=== PATIENT | male | born 1985 | race African-American/Black ===

== ENCOUNTER 2017-05-20 10:35 | Emergency (ER) | payer OTHER ==
[2017-05-20 10:43] VITALS: BP 178/120; PULSE 65; RESP 20; TEMP 98.2
[2017-05-20] MEDS ORDERED: IBUPROFEN 600 MG STARTER PACK 4 TAB BTL PO STA (11:09)
[2017-05-20] MEDS ORDERED: PENICILLIN VK 500MG STARTER 4 TAB BTL PO STA (11:09)
[2017-05-20] MEDS ORDERED: traMADol 50 MG STARTER PACK 3 TAB BTL PO STA (11:10)
--- NOTE | 2017-05-20 11:17 | ED ---
ENT HPI - General Chief complaint: Dental/Oral Stated complaint: Dental Pain Time Seen by Provider: 05/20/17 10:54 Source: patient, RN notes reviewed Mode of arrival: ambulatory Limitations: no limitations - History of Present Illness Initial comments: 32-year-old male presents to the emergency department the chief complaint of left-sided dental pain. Patient states that about 2 weeks pain is just getting worse. Patient states that radiates up his jaw and down his chart here. Patient states that he is no pain to palpation in the neck denies any swelling of the face or any fevers. He denies any difficulty opening closing the mouth. Patient states that he tried to get into a dentist but he is unable to get an appointment at this time. Patient states that he does have a history of poor dentition in the past. Patient states that he was concerned due to his symptoms so he thought that he should be evaluated. Patient denies any recent fever, chills, shortness of breath, chest pain, back pain, abdominal pain, nausea vomiting, numbness or tingling, dysuria or hematuria, constipation or diarrhea, headaches or visual changes, or any other current symptoms. - Related Data Previous Rx's Medication Instructions Recorded Penicillin V Potassium [Pen Vee K] 500 mg PO QID #40 tab 09/13/14 Ibuprofen [Motrin] 600 mg PO Q6HR PRN #20 tab 05/20/17 Penicillin V Potassium [Pen Vee K] 500 mg PO TID #40 tab 05/20/17 traMADol HCl [Ultram] 50 mg PO Q4H PRN #20 tab 05/20/17 Allergies Allergy/AdvReac Type Severity Reaction Status Date / Time No Known Allergies Allergy Verified 05/20/17 10:43 Review of Systems ROS Statement: Those systems with pertinent positive or pertinent negative responses have been documented in the HPI. ROS Other: All systems not noted in ROS Statement are negative. Past Medical History Past Medical History: No Reported History History of Any Multi-Drug Resistant Organisms: None Reported Past Surgical History: No Surgical Hx Reported Past Psychological History: No Psychological Hx Reported Smoking Status: Current every day smoker Past Alcohol Use History: Occasional Past Drug Use History: None Reported General Exam Limitations: no limitations General appearance: alert, in no apparent distress Head exam: Present: atraumatic, normocephalic, normal inspection Eye exam: Present: normal appearance, PERRL, EOMI. Absent: scleral icterus, conjunctival injection, periorbital swelling ENT exam: Present: normal exam, mucous membranes moist Expanded Ear exam: Present: normal external inspection Mouth exam: Present: normal external inspection Teeth exam: Present: dental caries, fractured tooth # (18), other (No abscess). Absent: gingival enlargement Throat exam: normal inspection Neck exam: Present: normal inspection. Absent: tenderness, meningismus, lymphadenopathy Respiratory exam: Present: normal lung sounds bilaterally. Absent: respiratory distress, wheezes, rales, rhonchi, stridor Cardiovascular Exam: Present: regular rate, normal rhythm, normal heart sounds. Absent: systolic murmur, diastolic murmur, rubs, gallop, clicks Neurological exam: Present: alert, oriented X3 Psychiatric exam: Present: normal affect, normal mood Skin exam: Present: warm, dry, intact, normal color. Absent: rash Course Vital Signs 05/20/17 10:40 Temperature 98.2 F Pulse Rate 65 Respiratory 20 Rate Blood Pressure 178/120 O2 Sat by Pulse 99 Oximetry Medical Decision Making - Medical Decision Making 32-year-old male presents emergency department with a chief complaint of left- sided dental pain. we will Start the patient on pain medication as well as antibiotics. We discussed return parameters and follow-up and all questions. He stated he understood. This time patient will be discharged. Disposition Clinical Impression: Dental caries Disposition: HOME SELF-CARE Condition: Stable Instructions: Dental Caries (ED) Additional Instructions: Please use medication as discussed. Please follow up with family doctor if symptoms have not improved over the next two days. Please return to the emergency room if your symptoms increase or worsen or for any other concerns. [facility] [place] [address] [phone] (existing clients only) For new clients: [phone] 1st consult: $50 (includes Xrays) Usually 30% less then private dentist for visits after. [employer] Have to pay $50 for Xrays anmd rest is covered. [phone] Prescriptions: Ibuprofen [Motrin] 600 mg PO Q6HR PRN #20 tab PRN Reason: Pain Penicillin V Potassium [Pen Vee K] 500 mg PO TID #40 tab traMADol HCl [Ultram] 50 mg PO Q4H PRN #20 tab PRN Reason: Pain Referrals: Karin Lopez MD [STAFF PHYSICIAN] - 1-2 days Time of Disposition: 11:15
== END 2017-05-20 11:25 | disposition home or self-care (01) ==
LOC: EC 10:35
DX: K02.9 Dental caries, unspecified (principal); K03.81 Cracked tooth; F17.200 Nicotine dependence, unspecified, uncomplicated
CPT/HCPCS: 99282

== ENCOUNTER 2017-11-06 20:34 | Emergency (ER) | payer OTHER ==
[2017-11-06 20:53] VITALS: BP 134/77; PULSE 79; RESP 18; TEMP 97.1
--- NOTE | 2017-11-06 21:25 | ED ---
General Adult HPI - General Chief complaint: Extremity Injury, Upper Stated complaint: hand injury Time Seen by Provider: 11/06/17 20:55 Source: patient, RN notes reviewed Mode of arrival: ambulatory Limitations: no limitations - History of Present Illness Initial comments: 32-year-old male presents to the emergency department with a chief complaint of right hand pain. Patient states that he became angry today and he punched the wall. Patient states that he now noticed a bulge in his right hand he has pain with any movement of the fourth or fifth digit. He denies any wrist pain or elbow pain. He states he is not currently having any other symptoms at this time. They were concerned due to the patient's continued pain and discomfort so they thought that they should be evaluated. Patient denies any recent fever, chills, shortness of breath, chest pain, back pain, abdominal pain, nausea vomiting, numbness or tingling, dysuria or hematuria, constipation or diarrhea, headaches or visual changes, or any other current symptoms. - Related Data Previous Rx's Medication Instructions Recorded Penicillin V Potassium [Pen Vee K] 500 mg PO QID #40 tab 09/13/14 Ibuprofen [Motrin] 600 mg PO Q6HR PRN #20 tab 05/20/17 Penicillin V Potassium [Pen Vee K] 500 mg PO TID #40 tab 05/20/17 traMADol HCl [Ultram] 50 mg PO Q4H PRN #20 tab 05/20/17 Hydrocodone/Acetaminophen [Pitman 1 each PO Q6HR PRN #10 tab 11/06/17 5-325] Allergies Allergy/AdvReac Type Severity Reaction Status Date / Time No Known Allergies Allergy Verified 11/06/17 20:53 Review of Systems ROS Statement: Those systems with pertinent positive or pertinent negative responses have been documented in the HPI. ROS Other: All systems not noted in ROS Statement are negative. Past Medical History Past Medical History: No Reported History History of Any Multi-Drug Resistant Organisms: None Reported Past Surgical History: No Surgical Hx Reported Past Psychological History: Anxiety Smoking Status: Current every day smoker Past Alcohol Use History: Occasional Past Drug Use History: None Reported General Exam - General Exam Comments Initial Comments: General: The patient is awake and alert, in no distress, and does not appear acutely ill. Neck: The neck is supple, there is no tenderness. Cardiovascular: There is a regular rate and rhythm. No murmur, rub or gallop is appreciated. Respiratory: Lungs are clear to auscultation, respirations are non-labored, breath sounds are equal. No wheezes, stridor, rales, or rhonchi. Musculoskeletal: Sensation intact with 2+ pulses right upper Extremity. Full range of motion of the right elbow. Patient's panel bulge over the fifth metatarsal. There is a small abrasion to the right third digit. Limited range of motion of the right wrist and hand due to pain. Neurological: CN II-XII intact, There are no obvious motor or sensory deficits. Coordination appears grossly intact. Speech is normal. Skin: Skin is warm and dry and no rashes or lesions are noted. Psychiatric: Normal mood and affect. Limitations: no limitations Course Vital Signs 11/06/17 20:50 Temperature 97.1 F L Pulse Rate 79 Respiratory 18 Rate Blood Pressure 134/77 O2 Sat by Pulse 100 Oximetry Procedures - Orthopedic Splinting/Casting Injury #1 Side: right Upper Extremity Injury Location: hand Upper Extremity Immobilizer: ulnar gutter (short arm) Medical Decision Making - Medical Decision Making 32-year-old male presents for right fifth metatarsal dislocation. At this time we did discuss follow-up with him he is given orthopedic referral. We did discuss return parameters all patient's questions. Patient stated that he understood and he is agreement this plan. All questions have been answered. - Radiology Data Radiology results: report reviewed, image reviewed Disposition Clinical Impression: Closed dislocation of fifth metacarpal bone of right hand Disposition: HOME SELF-CARE Condition: Stable Instructions: Hand Fracture (ED) Additional Instructions: Please use medication as discussed. Please follow up with family doctor if symptoms have not improved over the next two days. Please return to the emergency room if your symptoms increase or worsen or for any other concerns. Prescriptions: Hydrocodone/Acetaminophen [Pitman 5-325] 1 each PO Q6HR PRN #10 tab PRN Reason: Pain Referrals: Alexsander Villa DO [Doctor of Osteopathic Medicine] - 1-2 days
--- NOTE | 2017-11-06 21:54 | XR ---
EXAMINATION TYPE: XR hand complete RT DATE OF EXAM: 11/06/2017 CLINICAL HISTORY: Punched wall injury with pain TECHNIQUE: Frontal, lateral and oblique images of the right hand are obtained. COMPARISON: None. FINDINGS: Exam is suboptimal as patient does not completely extend phalanges. There is no acute frac ture evident in the right hand. There appears to be subluxation or dislocation at base of fifth metac arpal on oblique and lateral image with posterior impaction and palmar angulation. The overlying sof t tissue appears unremarkable. IMPRESSION: There is dislocation at base of fifth metacarpal. No acute fracture is clearly seen.
[2017-11-06] MEDS ORDERED: HYDROcodone/APAP 5-325MG 1 EACH TAB PO STA (22:09)
== END 2017-11-06 22:21 | disposition home or self-care (01) ==
LOC: EC 20:34
DX: S63.064A Dislocation of metacarpal (bone), proximal end of right hand, initial encounter (principal); F17.200 Nicotine dependence, unspecified, uncomplicated; W22.01XA Walked into wall, initial encounter
CPT/HCPCS: 29125; 99283

== ENCOUNTER 2017-12-18 15:33 | Emergency (ER) | payer OTHER ==
[2017-12-18 16:15] VITALS: RESP 20
[2017-12-18] MEDS ORDERED: SODIUM CHLORIDE 0.9% 1,000 ML IV STA ×2 (16:47)
[2017-12-18] MEDS ORDERED: KETOROLAC 30 MG/ML 1 ML VIAL IVP STA (16:47)
[2017-12-18] MEDS ORDERED: MORPHINE SULFATE 5 MG/ML SYRINGE IV STA (16:47)
[2017-12-18 17:10] LABS: Basophils % (A) 0 %; Eosinophils # (A) 0.2 k/uL (0-0.7); Eosinophils % (A) 2 %; HCT 48.4 % (39.0-53.0); HGB 15.3 gm/dL (13.0-17.5); Lymphocytes # (A) 1.9 k/uL (1.0-4.8); Lymphocytes % (A) 20 %; MCH 30.5 pg (25.0-35.0); MCHC 31.6 g/dL (31.0-37.0); MCV 96.6 fL (80.0-100.0); Mean Platelet Volume 7.8; Monocytes # (A) 0.5 k/uL (0-1.0); Monocytes % (A) 5 %; Neutrophils # (A) 6.7 k/uL (1.3-7.7); Neutrophils % (A) 72 %; Platelet Count 205 k/uL (150-450); RBC 5.01 m/uL (4.30-5.90); RDW 14.7 % (11.5-15.5); WBC 9.4 k/uL (3.8-10.6)
[2017-12-18 17:19] LABS: D-Dimer 0.29 mg/L FEU (<0.60)
[2017-12-18] MEDS ORDERED: RX INFO: IV CONTRAST WAS GIVEN 1 EACH MISC MISCELLANE PRN (17:20)
[2017-12-18 17:21] LABS: ALT 22 U/L (21-72); AST 26 U/L (17-59); Albumin 4.1 g/dL (3.5-5.0); Alkaline Phosphatase 94 U/L (38-126); Anion Gap 10 mmol/L; Blood Urea Nitrogen 9 mg/dL (9-20); Calcium 9.8 mg/dL (8.4-10.2); Carbon Dioxide 27 mmol/L (22-30); Chloride 105 mmol/L (98-107); Glucose 103 mg/dL (74-99); Lipase 105 U/L (23-300); Magnesium 1.8 mg/dL (1.6-2.3); Sodium 142 mmol/L (137-145); Total Bilirubin 0.4 mg/dL (0.2-1.3); Total Protein 7.2 g/dL (6.3-8.2)
[2017-12-18 17:23] LABS: Partial Thromboplastin Time 23.9 sec (22.0-30.0); Prothrombin Time 9.8 sec (9.0-12.0)
--- NOTE | 2017-12-18 17:25 | ED ---
General Adult HPI - General Chief complaint: Chest Pain Stated complaint: chest pain Time Seen by Provider: 12/18/17 16:42 Source: patient, RN notes reviewed, old records reviewed Mode of arrival: wheelchair Limitations: no limitations - History of Present Illness Initial comments: This is a 32-year-old male to the ER for evaluation. This patient presents today for evaluation regards to chest pain. Patient states 3 days ago he began with chest pain anterior chest occasional shortness of breath. Patient has no medical history does smoke occasionally drinks. Denies abdominal pain normal appetite. No significant weight loss. Patient denies recent fever. He did take aspirin with no help for pain. Patient currently does have been experiencing chest pain that is episodic. - Related Data Home Medications Medication Instructions Recorded Confirmed Ibuprofen [Motrin Ib] 600 mg PO Q6H PRN 12/18/17 12/18/17 Allergies Allergy/AdvReac Type Severity Reaction Status Date / Time No Known Allergies Allergy Verified 12/18/17 17:27 Review of Systems ROS Statement: Those systems with pertinent positive or pertinent negative responses have been documented in the HPI. ROS Other: All systems not noted in ROS Statement are negative. Past Medical History Past Medical History: No Reported History History of Any Multi-Drug Resistant Organisms: None Reported Past Surgical History: No Surgical Hx Reported Past Psychological History: Anxiety Smoking Status: Current every day smoker Past Alcohol Use History: Occasional Past Drug Use History: None Reported General Exam Limitations: no limitations General appearance: alert, in no apparent distress Head exam: Present: atraumatic, normocephalic, normal inspection Eye exam: Present: normal appearance, PERRL, EOMI. Absent: scleral icterus, conjunctival injection, periorbital swelling ENT exam: Present: normal exam, mucous membranes moist Neck exam: Present: normal inspection. Absent: tenderness, meningismus, lymphadenopathy Respiratory exam: Present: normal lung sounds bilaterally. Absent: respiratory distress, wheezes, rales, rhonchi, stridor Cardiovascular Exam: Present: regular rate, normal rhythm, normal heart sounds. Absent: systolic murmur, diastolic murmur, rubs, gallop, clicks GI/Abdominal exam: Present: soft, normal bowel sounds. Absent: distended, tenderness, guarding, rebound, rigid Extremities exam: Present: normal inspection, full ROM, normal capillary refill. Absent: tenderness, pedal edema, joint swelling, calf tenderness Back exam: Present: normal inspection Neurological exam: Present: alert, oriented X3, CN II-XII intact Psychiatric exam: Present: normal affect, normal mood Skin exam: Present: warm, dry, intact, normal color. 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 Chest pain worse with movement. Patient has negative troponin negative EKG and negative CTA CT does show an infiltrate pneumonia. Patient will be put on appropriate treatment for pneumonia and discharged home to follow-up with family physician to get further cardiac evaluation - Lab Data Result diagrams: 12/18/17 17:02 12/18/17 17:02 Lab Results 12/18/17 12/18/17 12/18/17 Range/Units 17:02 17:02 17:02 WBC 9.4 (3.8-10.6) k/uL RBC 5.01 (4.30-5.90) m/uL Hgb 15.3 (13.0-17.5) gm/dL Hct 48.4 (39.0-53.0) % MCV 96.6 (80.0-100.0) fL MCH 30.5 (25.0-35.0) pg MCHC 31.6 (31.0-37.0) g/dL RDW 14.7 (11.5-15.5) % Plt Count 205 (150-450) k/uL Neutrophils % 72 % Lymphocytes % 20 % Monocytes % 5 % Eosinophils % 2 % Basophils % 0 % Neutrophils # 6.7 (1.3-7.7) k/uL Lymphocytes # 1.9 (1.0-4.8) k/uL Monocytes # 0.5 (0-1.0) k/uL Eosinophils # 0.2 (0-0.7) k/uL Basophils # 0.0 (0-0.2) k/uL PT (9.0-12.0) sec INR (<1.2) APTT (22.0-30.0) sec D-Dimer (<0.60) mg/L FEU Sodium 142 (137-145) mmol/L Potassium 4.0 (3.5-5.1) mmol/L Chloride 105 (98-107) mmol/L Carbon Dioxide 27 (22-30) mmol/L Anion Gap 10 mmol/L BUN 9 (9-20) mg/dL Creatinine 0.87 (0.66-1.25) mg/dL Est GFR (MDRD) Af Amer >60 (>60 ml/min/1.73 sqM) Est GFR (MDRD) Non-Af >60 (>60 ml/min/1.73 sqM) Glucose 103 H (74-99) mg/dL Calcium 9.8 (8.4-10.2) mg/dL Magnesium 1.8 (1.6-2.3) mg/dL Total Bilirubin 0.4 (0.2-1.3) mg/dL AST 26 (17-59) U/L ALT 22 (21-72) U/L Alkaline Phosphatase 94 (38-126) U/L Total Creatine Kinase 42 L (55-170) U/L CK-MB (CK-2) <0.2 (0.0-2.4) ng/mL CK-MB (CK-2) Rel Index Troponin I <0.012 (0.000-0.034) ng/mL Total Protein 7.2 (6.3-8.2) g/dL Albumin 4.1 (3.5-5.0) g/dL Lipase 105 (23-300) U/L 12/18/17 Range/Units 17:02 WBC (3.8-10.6) k/uL RBC (4.30-5.90) m/uL Hgb (13.0-17.5) gm/dL Hct (39.0-53.0) % MCV (80.0-100.0) fL MCH (25.0-35.0) pg MCHC (31.0-37.0) g/dL RDW (11.5-15.5) % Plt Count (150-450) k/uL Neutrophils % % Lymphocytes % % Monocytes % % Eosinophils % % Basophils % % Neutrophils # (1.3-7.7) k/uL Lymphocytes # (1.0-4.8) k/uL Monocytes # (0-1.0) k/uL Eosinophils # (0-0.7) k/uL Basophils # (0-0.2) k/uL PT 9.8 (9.0-12.0) sec INR 1.0 (<1.2) APTT 23.9 (22.0-30.0) sec D-Dimer 0.29 (<0.60) mg/L FEU Sodium (137-145) mmol/L Potassium (3.5-5.1) mmol/L Chloride (98-107) mmol/L Carbon Dioxide (22-30) mmol/L Anion Gap mmol/L BUN (9-20) mg/dL Creatinine (0.66-1.25) mg/dL Est GFR (MDRD) Af Amer (>60 ml/min/1.73 sqM) Est GFR (MDRD) Non-Af (>60 ml/min/1.73 sqM) Glucose (74-99) mg/dL Calcium (8.4-10.2) mg/dL Magnesium (1.6-2.3) mg/dL Total Bilirubin (0.2-1.3) mg/dL AST (17-59) U/L ALT (21-72) U/L Alkaline Phosphatase (38-126) U/L Total Creatine Kinase (55-170) U/L CK-MB (CK-2) (0.0-2.4) ng/mL CK-MB (CK-2) Rel Index Troponin I (0.000-0.034) ng/mL Total Protein (6.3-8.2) g/dL Albumin (3.5-5.0) g/dL Lipase (23-300) U/L - Radiology Data Radiology results: report reviewed (Chest x-ray negative CTA positive for pneumonia), image reviewed Disposition Clinical Impression: Chest pain, Atypical chest pain, Community acquired pneumonia Disposition: ADMITTED IP TO THIS [facility] Condition: Good Referrals: None,Stated [Primary Care Provider] - 1-2 days
[2017-12-18 17:30] LABS: Creatine Kinase 42 U/L (55-170)
--- NOTE | 2017-12-18 17:36 | XR ---
EXAMINATION TYPE: XR chest 2V DATE OF EXAM: 12/18/2017 COMPARISON: NONE HISTORY: Chest pain TECHNIQUE: Frontal and lateral views of the chest are obtained. FINDINGS: Heart and mediastinum are normal. There is some consolidation in the posterior basal segme nt left lower lobe.. Diaphragm is normal. Bony thorax is intact. There are chest leads. IMPRESSION: Left lower lobe pneumonia.
[2017-12-18 17:43] LABS: Creatine Kinase MB <0.2 ng/mL (0.0-2.4); Troponin I <0.012 ng/mL (0.000-0.034)
--- NOTE | 2017-12-18 18:05 | CT ---
EXAMINATION TYPE: CT angio chest DATE OF EXAM: 12/18/2017 5:50 PM COMPARISON: NONE HISTORY: Left chest pain x [address] DLP: 532 mGycm Automated exposure control for dose reduction was used. CONTRAST: CTA scan of the thorax is performed with IV Contrast, patient injected with 86 mL of Omnipaque 350, p ulmonary embolism protocol. There are 3-D post processed images.. FINDINGS: There is patchy interstitial infiltrate and atelectasis at the posterior lung bases. This is more on the left side. There is small left pleural effusion. There is no pericardial effusion. Thoracic aorta appears normal. There is no sign of aneurysm or dissection. There is normal contrast o pacification of the pulmonary arteries. I see no filling defects. There are no hilar masses. There is no mediastinal adenopathy. The thoracic spine is intact. IMPRESSION: NO EVIDENCE OF PULMONARY EMBOLISM. BILATERAL LOWER LOBE PULMONARY INFILTRATES AND ATELECTASIS. SMALL LEFT PLEURAL EFFUSION. NORMAL HEART.
[2017-12-18] MEDS ORDERED: DEXAMETHASONE SOD PHOSPHATE 10 MG/ML 1 ML VIAL IV STA (18:24)
[2017-12-18] MEDS ORDERED: IPRATROPIUM-ALBUTEROL 3 ML NEB INHALATION STA (18:24)
[2017-12-18] MEDS ORDERED: AZITHROMYCIN 500 MG TAB PO STA (18:26)
[2017-12-18 18:47] VITALS: BP 120/75; TEMP 98.9
[2017-12-18 18:54] VITALS: PULSE 62
== END 2017-12-18 19:07 | disposition other institution (70) ==
LOC: EC 15:33
DX: J18.9 Pneumonia, unspecified organism (principal); F17.200 Nicotine dependence, unspecified, uncomplicated
CPT/HCPCS: 36415; 94640; 93005; 85379; 80053; 82550; 82553; 83690; 83735; 84484; 85025; 85610; 85730; 71046; 71275; 99285; 96374; 96375 ×2; 96361 ×2; J1100; Q9967; J1885; J2274

== ENCOUNTER 2019-06-05 15:54 | Emergency (ER) | payer OTHER ==
[2019-06-05 16:30] VITALS: BP 121/77; PULSE 67; RESP 18; TEMP 98.5
[2019-06-05] MEDS ORDERED: SODIUM CHLORIDE 0.9% 1,000 ML IV STA (17:53)
[2019-06-05] MEDS ORDERED: diphenhydrAMINE 50 MG/ML 1 ML VIAL IVP STA (17:53)
[2019-06-05] MEDS ORDERED: KETOROLAC 30 MG/ML 1 ML VIAL IVP STA (17:53)
[2019-06-05] MEDS ORDERED: MORPHINE SULFATE 2 MG/ML SYRINGE IVP STA (19:03)
[2019-06-05] MEDS ORDERED: DIAZEPAM 5 MG/ML 2 ML INJ IVP STA (19:03)
--- NOTE | 2019-06-05 19:26 | ED ---
Headache HPI - General Chief Complaint: Headache Stated Complaint: headache Time Seen by Provider: 06/05/19 17:22 Mode of arrival: ambulatory Limitations: no limitations - History of Present Illness Initial Comments: 34 remount history of chronic migraines presents today for chief complaint of headache. Even prior to obtaining history patient clarified he does not want imaging studies he states that he has had previous CTs and evaluations and he does not feel this is necessary. He states he has had a headache that has been ongoing for a month. He states is typical of his chronic migraines but has been lasting longer than usual. He states that they are not constantly comes and goes multiple times a day for short periods of time. Patient states that it's behind both eyes radiates towards the back. Patient denies a vomiting he denies any dizziness he denies any visual changes speech changes loss of sensation or muscle weakness of the upper or lower extremity. Denies fever or neck stiffness. Patient states that he does not feel off balance. Patient denies being there being a pattern at night or in the morning he states it happens randomly. Patient states that he has come to emergency department and he was given medication to take the headache away. Patient is also asking for neurology follow-up. Remaining review of systems negative. Upon arrival nataly ent appears well no signs of acute distress. - Related Data Home Medications Medication Instructions Recorded Confirmed Ibuprofen [Motrin Ib] 600 mg PO Q6H PRN 12/18/17 12/18/17 Previous Rx's Medication Instructions Recorded Acetaminophen with Codeine 1 tab PO Q4H PRN #20 tab 12/18/17 [Tylenol w/codeine #3] Albuterol Sulfate [Proair Hfa] 1 - 2 puff INHALATION Q4H #1 12/18/17 inhaler Azithromycin [Zithromax Z-pack] 0 mg PO DIRECTED #1 pack 12/18/17 Allergies Allergy/AdvReac Type Severity Reaction Status Date / Time No Known Allergies Allergy Verified 12/18/17 17:27 Review of Systems ROS Statement: Those systems with pertinent positive or pertinent negative responses have been documented in the HPI. ROS Other: All systems not noted in ROS Statement are negative. Past Medical History Past Medical History: No Reported History History of Any Multi-Drug Resistant Organisms: None Reported Past Surgical History: No Surgical Hx Reported Past Psychological History: Anxiety Smoking Status: Current every day smoker Past Alcohol Use History: Occasional Past Drug Use History: None Reported General Exam - General Exam Comments Initial Comments: General: The patient is awake and alert, in no distress, and does not appear acutely ill. Eye: +3 mm pupils are equal, round and reactive to light, extra-ocular movements are intact. No nystagmus. There is normal conjunctiva bilaterally. No signs of icterus. Ears, nose, mouth and throat: There are moist mucous membranes and no oral lesions. Neck: The neck is supple, there is no tenderness or JVD. Cardiovascular: There is a regular rate and rhythm. No murmur, rub or gallop is appreciated. Respiratory: Lungs are clear to auscultation, respirations are non-labored, breath sounds are equal. No wheezes, stridor, rales, or rhonchi. Musculoskeletal: Normal ROM, no tenderness. Strength 5/5. Sensation intact. Pulses equal bilaterally 2+. Neurological: A&O x 3. CN II-XII intact,memory intact to immediately, intermediate and long term acute care registered nurse recall. Able to follow simple verbal. Able to name a common object (pen). High quality, labial (pa) and lingual (la) speech. Low quality posterior pharynx/larynx (ga) voice sounds. Able to express general knowledge (days in a week). No hemineglect or inattention noted. Finger agnosia (-) and spatially oriented (identified L index finger touched R shoulder with L index finger). Light touch and temperature sensation present over the face, chest, abdomen, back, UE bilaterally, and LE bilaterally. Able to localize point during point localization b/l and extinction. No visible bulk atrophy, hypertrophy, fasciculations, or myoclonus of the UE or LE b/l. Full PROM in UE and LE b/l. Bilateral muscle strength 5/5 for the following muscles: deltoid, biceps, triceps, brachioradialis, wrist extensors/flexor, hip flexor, hip abductors/adductors, hamstrings, quadriceps, feet dorsiflexors/plantar flexors. Finger to nose, finger to the examiners finger, and heel to blanco coordinated and accurate b/l. Coordinated and even demonstration of hand flip, finger to thumb, and toe tap b/l. Gait is coordinated and even in stride with tandem. Maintains balance with monopedal stance. (-) pronator drift. No nuchal rigidity. Skin: Skin is warm and dry and no rashes or lesions are noted. Psychiatric: Cooperative, appropriate mood & affect, normal judgment. Limitations: no limitations Course Vital Signs 06/05/19 16:27 Temperature 98.5 F Pulse Rate 67 Respiratory 18 Rate Blood Pressure 121/77 O2 Sat by Pulse 100 Oximetry - Reevaluation(s) Reevaluation #1: 06/05/19 20:13 Patient sleeping states headache gone, requesting discharge Medical Decision Making - Medical Decision Making Well-appearing 36 mL presenting for headache. Patient states that he will refuse any imaging studies states they have been all negative in the past. He states is typical is chronic migraines. He denies any changes denies this being the worst headache of his life. He states is just been so chronic for the past month. Patient denies any night awakening. Denies there being a pattern in the morning. Patient has no focal neurological deficits. No signs of nuchal irritation. Patient was treated initially with Toradol and Benadryl, this slightly alleviate the headache. Patient was then given Valium and morphine he states this completely took with a headache he was sleeping comfortably in the room upon reevaluation. He states is related to go home. Patient is accompanied by his significant other who will drive him to their home. Return parameters were discussed at length and the importance of outpatient MRI and neurology follow-up. Patient verbalized understanding is discharged appearing well. Disposition Clinical Impression: Headache Disposition: HOME SELF-CARE Condition: Good Instructions (If sedation given, give patient instructions): Acute Headache (ED) Additional Instructions: Please use medication as discussed. Please follow-up with family doctor in the next 2 days, neurology as discussed. recommend outpatient MRI for chronic migraines. Please return to emergency room if the symptoms increase or worsen or for any other concerns. Is patient prescribed a controlled substance at d/c from ED?: No Referrals: None,Stated [Primary Care Provider] - 1-2 days Mario Call DO [STAFF PHYSICIAN] - 1-2 days [facility] [NON-STAFF] - 1-2 days Time of Disposition: 20:13
== END 2019-06-05 20:30 | disposition home or self-care (01) ==
LOC: EC 15:54
DX: R51 Headache (principal); F17.200 Nicotine dependence, unspecified, uncomplicated
CPT/HCPCS: 99283; 96374; 96375 ×3; 96361; J1200; J3360; J1885; J2270

== ENCOUNTER → 2019-07-01 | Outpatient (CLI) | payer OTHER ==
--- NOTE | 2019-07-01 14:41 | MR ---
EXAMINATION TYPE: MR brain wo con DATE OF EXAM: 07/01/2019 COMPARISON: NONE HISTORY: Migraines TECHNIQUE: Multiplanar, multisequence images of the brain and brainstem is performed without intravenous contras t. FINDINGS: Diffusion weighted images demonstrate no evidence of a recent infarct or other diffusion ab normality. There is no extra-axial fluid collection. There are scattered foci of T2/FLAIR hyperinten sity within the periventricular and subcortical white matter. These are all subcentimeter with the la rgest measuring 5 x 4 mm in the right periatrial white matter of the occipital lobe. There are approx imately 5 foci on the right and 1 on the left. The ventricular system and cisternal spaces are normal in size and appearance. The brain volume is age appropriate. Midline structures demonstrate normal morphology. The craniocervical junction appears within normal limits. There is minimal leftward nasal septal deviation of the posterior nasal septum. Scant mucosal thickening of the ethmoid and frontal sinuses. Remaining paranasal sinuses and mastoid air cells are well aerated. The dural venous sinuses appear patent. Globes appear intact. IMPRESSION: 1. Mild burden nonspecific white matter change. Considerations are for sequela of migraines, microang iopathy, or less likely demyelinating disease given the distribution. 2. Mild paranasal sinus disease. 3. No acute infarct, midline shift or mass effect.
--- NOTE | 2019-07-01 15:11 | XR ---
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 Paranasal sinuses are well aerated. No radio opaque foreign body evide nt within the orbits. IMPRESSION: No radio opaque foreign body evident.
== END | disposition home or self-care (01) ==
LOC: RADMRIMAIN 11:40
PROVIDERS: ATTEND Psychiatry & Neurology Neurology
DX: R90.89 Other abnormal findings on diagnostic imaging of central nervous system (principal); G43.909 Migraine, unspecified, not intractable, without status migrainosus; I73.9 Peripheral vascular disease, unspecified; G43.009 Migraine without aura, not intractable, without status migrainosus
CPT/HCPCS: 70200; 70551

== ENCOUNTER 2019-11-27 12:14 | Emergency (ER) | payer OTHER | END 2019-11-27 12:33 | disposition left against medical advice (07) | LOC: EC 12:14 | DX: S09.90XA Unspecified injury of head, initial encounter (principal); Z53.21 Procedure and treatment not carried out due to patient leaving prior to being seen by health care provider; X58.XXXA Exposure to other specified factors, initial encounter | CPT/HCPCS: 99499 ==

== ENCOUNTER 2021-12-14 09:37 | Emergency (ER) | payer OTHER ==
[2021-12-14 09:47] VITALS: RESP 18; TEMP 98.7
--- NOTE | 2021-12-14 10:16 | ED ---
General Adult HPI - General Chief complaint: Abdominal Pain Stated complaint: Rectal Bleeding Time Seen by Provider: 12/14/21 09:49 Source: patient Mode of arrival: ambulatory Limitations: no limitations - History of Present Illness Initial comments: 36-year-old male presents to the emergency room for a chief complaint of rectal bleeding. Patient states at 4 AM he woke up in had some bright red blood in the toilet bowl. States it has happened 2 other times since. 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 He has not had any abdominal pain. He has not had any nausea vomiting. No diarrhea.Patient has no other complaints at this time including shortness of breath, chest pain, nausea or vomiting, headache, or visual changes. - Related Data Home Medications Medication Instructions Recorded Confirmed No Known Home Medications 12/14/21 12/14/21 Allergies Allergy/AdvReac Type Severity Reaction Status Date / Time No Known Allergies Allergy Verified 12/14/21 11:15 Review of Systems ROS Statement: Those systems with pertinent positive or pertinent negative responses have been documented in the HPI. ROS Other: All systems not noted in ROS Statement are negative. Past Medical History Past Medical History: No Reported History History of Any Multi-Drug Resistant Organisms: None Reported Past Surgical History: No Surgical Hx Reported Past Psychological History: Anxiety Smoking Status: Current every day smoker Past Alcohol Use History: Occasional Past Drug Use History: None Reported General Exam Limitations: no limitations General appearance: alert, in no apparent distress Head exam: Present: atraumatic Eye exam: Present: normal appearance, PERRL, EOMI. Absent: scleral icterus, conjunctival injection ENT exam: Present: normal exam, mucous membranes moist Neck exam: Present: normal inspection, full ROM. Absent: tenderness Respiratory exam: Present: normal lung sounds bilaterally. Absent: respiratory distress, wheezes Cardiovascular Exam: Present: regular rate, normal rhythm, normal heart sounds GI/Abdominal exam: Present: soft, normal bowel sounds. 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 Absent: bloody stool, hemorrhoids Neurological exam: Present: alert Course Vital Signs 12/14/21 09:43 Temperature 98.7 F Pulse Rate 90 Respiratory 18 Rate Blood Pressure 127/63 O2 Sat by Pulse 100 Oximetry Medical Decision Making - Medical Decision Making Vitals are stable. Patient is well appearing. No abdominal tenderness. Rectal exam did not reveal any abnormalities. However occult blood is positive. CBC shows a hemoglobin of 16.1. CMP unremarkable. At this time for outpatient follow-up however will need to see a surgeon or GI for colonoscopy. I will give him referrals. If he has worsening symptoms prior to that he will return to the emergency room. - Lab Data Result diagrams: 12/14/21 10:31 12/14/21 10:31 Lab Results 12/14/21 12/14/21 12/14/21 Range/Units 10:31 10:31 10:41 WBC 7.9 (3.8-10.6) k/uL RBC 5.64 (4.30-5.90) m/uL Hgb 16.1 (13.0-17.5) gm/dL Hct 51.4 (39.0-53.0) % MCV 91.0 (80.0-100.0) fL MCH 28.6 (25.0-35.0) pg MCHC 31.4 (31.0-37.0) g/dL RDW 16.0 H (11.5-15.5) % Plt Count 307 (150-450) k/uL MPV 7.2 Neutrophils % 73 % Lymphocytes % 20 % Monocytes % 4 % Eosinophils % 2 % Basophils % 0 % Neutrophils # 5.8 (1.3-7.7) k/uL Lymphocytes # 1.6 (1.0-4.8) k/uL Monocytes # 0.3 (0-1.0) k/uL Eosinophils # 0.2 (0-0.7) k/uL Basophils # 0.0 (0-0.2) k/uL Hypochromasia Slight Anisocytosis Slight Sodium 138 (137-145) mmol/L Potassium 5.3 H (3.5-5.1) mmol/L Chloride 107 (98-107) mmol/L Carbon Dioxide 22 (22-30) mmol/L Anion Gap 9 mmol/L BUN 10 (9-20) mg/dL Creatinine 1.02 (0.66-1.25) mg/dL Est GFR (CKD-EPI)AfAm >90 (>60 ml/min/1.73 sqM) Est GFR (CKD-EPI)NonAf >90 (>60 ml/min/1.73 sqM) Glucose 91 (74-99) mg/dL Calcium 9.5 (8.4-10.2) mg/dL Total Bilirubin 0.8 (0.2-1.3) mg/dL AST 54 (17-59) U/L ALT 49 (4-49) U/L Alkaline Phosphatase 47 (38-126) U/L Total Protein 7.5 (6.3-8.2) g/dL Albumin 4.0 (3.5-5.0) g/dL Stool Occult Blood Positive (Negative) Disposition Clinical Impression: Rectal bleeding Disposition: HOME SELF-CARE Condition: Good Instructions (If sedation given, give patient instructions): Rectal Bleeding (ED) Additional Instructions: Please follow up with general surgery or GI as you will likely require a colonoscopy. If you have worsening symptoms prior to that such as worsening bleeding, start to feel lightheaded, or any other concerning symptoms return i mmediately to the emergency room. Is patient prescribed a controlled substance at d/c from ED?: No Referrals: Sheri Quevedo MD [STAFF PHYSICIAN] - 1-2 days Lakesha Ndiaye MD [STAFF PHYSICIAN] - 1-2 days Time of Disposition: 11:39
[2021-12-14 10:46] LABS: Anisocytosis Slight; Basophils % (A) 0 %; Eosinophils # (A) 0.2 k/uL (0-0.7); Eosinophils % (A) 2 %; HCT 51.4 % (39.0-53.0); HGB 16.1 gm/dL (13.0-17.5); Hypochromasia Slight; Lymphocytes # (A) 1.6 k/uL (1.0-4.8); Lymphocytes % (A) 20 %; MCH 28.6 pg (25.0-35.0); MCHC 31.4 g/dL (31.0-37.0); Mean Platelet Volume 7.2; Monocytes # (A) 0.3 k/uL (0-1.0); Monocytes % (A) 4 %; Neutrophils # (A) 5.8 k/uL (1.3-7.7); Neutrophils % (A) 73 %; Platelet Count 307 k/uL (150-450); RBC 5.64 m/uL (4.30-5.90); WBC 7.9 k/uL (3.8-10.6)
[2021-12-14 10:50] LABS: ALT 49 U/L (4-49); African American GFR (CKD) >90 (>60 ml/min/1.73 sqM); Anion Gap 9 mmol/L; Blood Urea Nitrogen 10 mg/dL (9-20); Calcium 9.5 mg/dL (8.4-10.2); Carbon Dioxide 22 mmol/L (22-30); Chloride 107 mmol/L (98-107); Glucose 91 mg/dL (74-99); Non-African American GFR(CKD) >90 (>60 ml/min/1.73 sqM); Sodium 138 mmol/L (137-145); Total Bilirubin 0.8 mg/dL (0.2-1.3); Total Protein 7.5 g/dL (6.3-8.2)
[2021-12-14 10:51] LABS: AST 54 U/L (17-59); Alkaline Phosphatase 47 U/L (38-126); Potassium 5.3 mmol/L (3.5-5.1)
[2021-12-14 11:55] VITALS: BP 142/82; PULSE 88
== END 2021-12-14 11:55 | disposition home or self-care (01) ==
LOC: EC 09:37
DX: K62.5 Hemorrhage of anus and rectum (principal); F17.200 Nicotine dependence, unspecified, uncomplicated
CPT/HCPCS: 36415; 80053; 82272; 85025; 99283

== ENCOUNTER → 2021-12-30 | Outpatient (CLI) | payer OTHER ==
--- NOTE | 2021-12-30 14:15 | CT ---
EXAMINATION TYPE: CT abdomen pelvis w con DATE OF EXAM: 12/30/2021 COMPARISON: None HISTORY: No prior scans, Diverticulitis CT DLP: 618.30 mGycm CONTRAST: CT scan of the abdomen and pelvis is performed with Oral Contrast and with IV Contrast, patient injec talisha with 100ml mL of Isovue 300. FINDINGS: LUNG BASES-: No visible nodule. No infiltrate. LIVER/GB: No calcified gallstones. No space occupying hepatic lesion. Biliary tree is of normal ca liber. PANCREAS: No inflammation. No distinct mass. SPLEEN: No splenic enlargement. No lesion seen. ADRENALS: No nodule. No thickening. KIDNEYS/BLADDER: No hydronephrosis. No nephrolithiasis. No distinct renal mass. Urinary bladder g rossly unremarkable. BOWEL: Normal appendix. Normal bowel caliber. No inflammation. Moderate fecal stasis noted. GENITAL ORGANS: No gross abnormality. LYMPH NODES: No greater than 1cm abdominal or pelvic lymph nodes are appreciated. AORTA: No significant abnormality. OSSEOUS STRUCTURES: No significant abnormality is seen. OTHER: No significant additional abnormality is seen. IMPRESSION: 1. Moderate fecal stasis. Otherwise unremarkable study.
== END | disposition home or self-care (01) ==
LOC: RADCTMAIN 11:30
PROVIDERS: ATTEND Surgery Plastic and Reconstructive Surgery
DX: K57.32 Diverticulitis of large intestine without perforation or abscess without bleeding (principal)
CPT/HCPCS: 74177; Q9967

== ENCOUNTER 2022-01-25 09:03 | Day surgery (SDC) | payer OTHER ==
[2022-01-24 08:46] VITALS: BMI 25.7
--- NOTE | 2022-01-25 08:18 | P.GSHP ---
History of Present Illness H&P Date: 01/25/22 CHIEF COMPLAINT: GERD and colon screen HISTORY OF PRESENT ILLNESS: The patient is a 36-year-old male who presents with gastroesophageal reflux disease and need for colon screen. Upper and lower endoscopy were offered for further evaluation and management. PAST MEDICAL HISTORY: Please see list. PAST SURGICAL HISTORY: Please see list. MEDICATIONS: Please see list. ALLERGIES: Please see list. SOCIAL HISTORY: No illicit drug use FAMILY HISTORY: No reports of Crohn disease or ulcerative colitis. REVIEW OF ORGAN SYSTEMS: CONSTITUTIONAL: No reports of fevers or chills. GI: Denies any blood in stools or constipation. PHYSICAL EXAM: VITAL SIGNS: Stable GENERAL: Well-developed pleasant in no acute distress. HEENT: No scleral icterus. Extraocular movements grossly intact. Moist buccal mucosa. NECK: Supple without lymphadenopathy. CHEST: Unlabored respirations. Equal bilateral excursions. CARDIOVASCULAR: Regular rate and rhythm. Distal 2+ pulses. ABDOMEN: Soft, nondistended. MUSCULOSKELETAL: No clubbing, cyanosis, or edema. ASSESSMENT: 1. Gastroesophageal reflux disease 2. Colon screen. PLAN: 1. Recommend proceeding with an upper and lower endoscopy Past Medical History Past Medical History: No Reported History Additional Past Medical History / Comment(s): BLOOD IN STOOL A FEW WEEKS AGO History of Any Multi-Drug Resistant Organisms: None Reported Past Surgical History: No Surgical Hx Reported Past Anesthesia/Blood Transfusion Reactions: No Reported Reaction Smoking Status: Current every day smoker - Past Family History Mother Family Medical History: No Reported History Medications and Allergies Home Medications Medication Instructions Recorded Confirmed Type No Known Home Medications 12/14/21 01/24/22 History Allergies Allergy/AdvReac Type Severity Reaction Status Date / Time No Known Allergies Allergy Verified 01/24/22 08:38
[~2022-01-25 09:03] MED LIST: LACTATED RINGERS 1,000 ML IV SCH; LIDOCAINE 1% (10MG/ML) FOR IV START INTRADERMA PRN
[2022-01-25 09:37] VITALS: TEMP 97.4
[2022-01-25] MEDS ORDERED: KETAMINE 10 MG/ML 20 ML VIAL ONE (10:06)
[2022-01-25] MEDS ORDERED: LIDOCAINE 1% INJ 10MG/ML (20 ML MDV) ONE (10:06)
[2022-01-25] MEDS ORDERED: PROPOFOL 10 MG/ML 20 ML VIAL IV ONE (10:06)
[2022-01-25] MEDS ORDERED: GLYCOPYRROLATE 0.2 MG/ML 2 ML VIAL ONE (10:06)
--- NOTE | 2022-01-25 10:37 | P.PCN ---
Date of Procedure: 01/25/22 Description of Procedure: PREOPERATIVE DIAGNOSIS: Gastrointestinal bleed POSTOPERATIVE DIAGNOSIS: History of gastrointestinal bleed Gastritis OPERATION: Esophagogastroduodenoscopy with biopsies along antrum. SURGEON: Sheri Queevdo MD ANESTHESIA: MAC. INDICATIONS: The patient is a 36-year-old female who presents with reflux disease. Benefits and risks of the procedure were described. Informed consent was obtained. DESCRIPTION: The patient was brought into the endoscopy suite and laid in the left lateral decubitus position. An Olympus gastroscope was passed along the posterior oropharynx down to the distal esophagus where the squamocolumnar junction was encountered at 42 cm from the incisors. The stomach was entered and no bile reflux was found. Additional findings are listed below. Biopsies with cold forceps were obtained of the antrum. The first through third portion of the duodenum was examined and unremarkable. Retroflexion of the scope confirmed Hill grade 1 lower esophageal valve. The squamocolumnar junction demonstrated LA grade B erosive esophagitis. The stomach was desufflated. The patient tolerated the procedure well. FINDINGS: Squamocolumnar junction 42 cm from the incisors. Diaphragmatic hiatus at 42 cm. Hill grade 1 lower esophageal valve. LA grade A erosive esophagitis. No active duodenitis. Chronic gastritis with recent bleed RECOMMENDATIONS: Upper endoscopy as needed.
--- NOTE | 2022-01-25 10:44 | P.PCN ---
Date of Procedure: 01/25/22 Description of Procedure: PREOPERATIVE DIAGNOSIS: History of colitis with gastrointestinal bleeding POSTOPERATIVE DIAGNOSIS: History of colitis with gastrointestinal bleeding OPERATION: Colonoscopy to the cecum, ileocecal valve and appendiceal orifice. Colonoscopy with random biopsies SURGEON: Sheri Quevedo MD. ANESTHESIA: MAC. INDICATIONS: The patient is a 36-year-old male who presents for colonoscopy screening. Benefits and risks were described and informed consent was obtained. DESCRIPTION OF PROCEDURE: The patient had undergone Sutab prep. The patient had been brought into the operating room and laid in the left lateral decubitus position. After adequate intravenous sedation, the rectum was examined with 2% lidocaine jelly. No external hemorrhoids were encountered. The rectal tone was within normal limits. No lesions were palpated in the rectal vault. An Olympus colonoscope was advanced until the cecum, ileocecal valve and appendiceal orifice were clearly viewed. The prep was excellent. No scattered diverticulosis was encountered. No colonic polyps were found. Retroflexion of the scope demonstrated grade 1 internal hemorrhoids without active bleeding or inflammation. The colon was desufflated. The patient had tolerated the procedure well. Withdrawal time was over 6 minutes. FINDINGS: Aronchick preparation quality scale 1 (1-5) Internal hemorrhoids, grade 1 No external prolapsed hemorrhoids. No arteriovenous malformations. No adenomatous polyps. Random cold forceps biopsies for microscopic colitis RECOMMENDATIONS: Lower endoscopy as needed Plan - Discharge Summary Discharge Rx Participant: No New Discharge Prescriptions: No Action No Known Home Medications Discharge Medication List No Known Home Medications 12/14/21 [History] Follow up Appointment(s)/Referral(s): Sheri Quevedo MD [STAFF PHYSICIAN] - 02/14/22 Patient Instructions/Handouts: *Surgery [facility] - (Anesthesia) Endoscopy Discharge Instructions Discharge Disposition: HOME SELF-CARE
[2022-01-25 10:58] VITALS: BP 127/78; PULSE 77; RESP 16
== END 2022-01-25 11:20 | disposition home or self-care (01) ==
LOC: ORWHC2ENDO 09:03
PROVIDERS: ATTEND Surgery Plastic and Reconstructive Surgery
DX: K52.9 Noninfective gastroenteritis and colitis, unspecified (principal); K22.11 Ulcer of esophagus with bleeding; K64.0 First degree hemorrhoids; K29.51 Unspecified chronic gastritis with bleeding; K92.2 Gastrointestinal hemorrhage, unspecified; B96.81 Helicobacter pylori [H. pylori] as the cause of diseases classified elsewhere; K21.9 Gastro-esophageal reflux disease without esophagitis; F41.9 Anxiety disorder, unspecified; F17.200 Nicotine dependence, unspecified, uncomplicated
CPT/HCPCS: 88305; 88342; 45380; 43239; J2001; J2704

== ENCOUNTER 2023-10-18 19:20 | Emergency (ER) | payer OTHER ==
--- NOTE | 2023-10-18 19:36 | ED ---
General Adult HPI - General Source: patient, RN notes reviewed <Keke Carranza - Last Filed: 10/18/23 19:32> <Devon Reina - Last Filed: 11/05/23 05:20> - General Stated complaint: Knee Pain Time Seen by Provider: 10/18/23 19:32 - History of Present Illness Initial comments: 38 -year-old male presents emergency department chief complaint of bilateral knee pain. He states that it started in the left knee about 3 weeks ago. He states that yesterday he noticed pain in the right knee similar to that that he has been experiencing in the left. He states that this is an parent is walking but he is able to ambulate. He does not take any medications for pain at home. Denies trauma. (Keke Carranza) - Related Data Previous Rx's Medication Instructions Recorded Ibuprofen [Motrin] 600 mg PO Q8HR PRN #20 tab 10/18/23 Allergies Allergy/AdvReac Type Severity Reaction Status Date / Time No Known Allergies Allergy Verified 01/25/22 09:38 Review of Systems ROS Other: All systems not noted in ROS Statement are negative. <Keke Carranza - Last Filed: 10/18/23 19:32> ROS Other: All systems not noted in ROS Statement are negative. Constitutional: Denies: fever, chills, weakness Respiratory: Denies: dyspnea Cardiovascular: Denies: chest pain, palpitations, edema Gastrointestinal: Denies: abdominal pain, vomiting Musculoskeletal: Reports: as per HPI, arthralgia Skin: Denies: rash, lesions Neurological: Denies: headache, weakness, numbness, paresthesias <Devon Reina - Last Filed: 11/05/23 05:20> ROS Statement: Those systems with pertinent positive or pertinent negative responses have been documented in the HPI. Past Medical History Past Medical History: No Reported History History of Any Multi-Drug Resistant Organisms: None Reported Past Surgical History: No Surgical Hx Reported Smoking Status: Current every day smoker <Keke Carranza - Last Filed: 10/18/23 19:32> General Exam <Keke Carranza - Last Filed: 10/18/23 19:32> General appearance: alert, in no apparent distress Respiratory exam: Present: normal lung sounds bilaterally. Absent: respiratory distress, wheezes, rales, rhonchi, stridor Cardiovascular Exam: Present: regular rate, normal rhythm, normal heart sounds. Absent: systolic murmur, diastolic murmur, rubs, gallop Extremities exam: Present: normal inspection, full ROM, normal capillary refill. Absent: pedal edema, calf tenderness Left Upper Leg exam: Present: normal inspection, full ROM. Absent: tenderness, swelling Knee exam: Present: full ROM, tenderness, swelling, full knee extension. Absent: pain w/ pronation/supination, posterior draw sign, pain/laxity with valgus, pain/laxity with varus Lower Leg exam: Present: normal inspection, full ROM. Absent: tenderness, swelling Ankle exam: Present: normal inspection, full ROM. Absent: tenderness, swelling Foot/Toe exam: Present: normal inspection, full ROM. Absent: tenderness, swelling Neurovascular tendon exam: Present: no vascular compromise. Absent: motor deficit, sensory deficit, tendon deficit Right Hip exam: Present: normal inspection, full ROM. Absent: tenderness, swelling Upper Leg exam: Present: normal inspection, full ROM. Absent: tenderness, swelling Knee exam: Present: full ROM, tenderness, swelling, full knee extension. Absent: ecchymosis, deformity, dislocation, erythema, effusion, pain w/ pronation/supination, posterior draw sign, pain/laxity with valgus, pain/laxity with varus Lower Leg exam: Present: normal inspection, full ROM. Absent: tenderness, swelling Ankle exam: Present: normal inspection, full ROM. Absent: tenderness, swelling Foot/Toe exam: Present: normal inspection, full ROM. Absent: tenderness, swelling Neurovascular tendon exam: Present: no vascular compromise. Absent: motor deficit, sensory deficit, tendon deficit Back exam: Present: normal inspection. Absent: vertebral tenderness Neurological exam: Present: alert. Absent: motor sensory deficit Skin exam: Present: warm, dry, intact, normal color. Absent: rash <Devon Reina - Last Filed: 11/05/23 05:20> - General Exam Comments Initial Comments: Visual Physical Exam Vital signs reviewed General: Well-appearing, nontoxic, no acute distress. Head: Normocephalic, atraumatic Eyes: PERRLA, EOMI ENT: Airway patent Chest: Nonlabored breathing Skin: No visual rash, normal skin tone Neuro: Alert and oriented 3 Musculoskeletal: No gross abnormalities (Kulka,Keke) Course Vital Signs 10/18/23 10/18/23 19:58 22:56 Temperature 97.4 F L Pulse Rate 84 64 Respiratory 18 18 Rate Blood Pressure 144/72 128/79 O2 Sat by Pulse 99 99 Oximetry Medical Decision Making <Keke Carranza - Last Filed: 10/18/23 19:32> <Devon Reina - Last Filed: 11/05/23 05:20> - Medical Decision Making Quick note preformed by Keke Carranza PA-C (Keke Carranza) The patient had knee x-ray which I interpreted as negative for acute bony injuries Was pt. sent in by a medical professional or institution (, [facility], CHOIR TEACHER, urgent care, hospital, or alf...) When possible be specific @ -[No] Did you speak to anyone other than the patient for history (EMS, parent, family, police, friend...)? What history was obtained from this source @ -[No] Did you review nursing and triage notes (agree or disagree)? Why? @ -[I reviewed and agree with nursing and triage notes] Were old charts reviewed (outside hosp., previous admission, EMS record, old EKG, old radiological studies, urgent care reports/EKG's, alf records)? Report findings @ -[No old charts were reviewed] Differential Diagnosis (chest pain, altered mental status, abdominal pain women, abdominal pain men, vaginal bleeding, weakness, fever, dyspnea, syncope, headache, dizziness, GI bleed, back pain, seizure, CVA, palpatations, mental health, musculoskeletal)? @ -[Differential Musculoskeletal Muscular strain, contusion, ligament sprain, fracture, arthritis, septic arthritis, bursitis, cellulitis, muscle spasm, nerve compression, DVT, arterial occlusion, herpes zoster, electrolyte abnormality, tumor.... This is not meant to be in all inclusive list EKG interpreted by me (3pts min.). @ -[As above] X-rays interpreted by me (1pt min.). @ -I interpreted as above CT interpreted by me (1pt min.). @ -[None done] U/S interpreted by me (1pt. min.). @ -[None done] What testing was considered but not performed or refused? (CT, X-rays, U/S, labs)? Why? @ -[None] What meds were considered but not given or refused? Why? @ -[None] Did you discuss the management of the patient with other professionals (professionals i.e. , PA, CHOIR TEACHER, lab, RT, psych nurse, social welfare administrator, therapist, teacher, biological technical officer, piano case maker)? Give summary @ -[No] Was smoking cessation discussed for >3mins.? @ -[No] Was critical care preformed (if so, how long)? @ -[No] Were there social determinants of health that impacted care today? How? (Homelessness, low income, unemployed, alcoholism, drug addiction, transportation, low edu. Level, literacy, decrease access to med. care, [facility], rehab)? @ -[No] Was there de-escalation of care discussed even if they declined (Discuss DNR or withdrawal of care, Hospice)? DNR status @ -[No] What co-morbidities impacted this encounter? (DM, HTN, Smoking, COPD, CAD, Cancer, CVA, ARF, Chemo, Hep., AIDS, mental health diagnosis, sleep apnea, morbid obesity)? @ -[None] Was patient admitted / discharged? Hospital course, mention meds given and route, prescriptions, significant lab abnormalities, going to OR and other pertinent info. @ -[Patient is 38-year-old man with risk factors for an history suggestive of Steve cyst. On the exam he does have some fullness in the popliteal areas bilaterally and tenderness. No evidence of infection on the exam. I discussed appropriate care as well as follow-up and to return parameters. Undiagnosed new problem with uncertain prognosis? @ -[No] Drug Therapy requiring intensive monitoring for toxicity (Heparin, Nitro, Insulin, Cardizem)? @ -[No] Were any procedures done? @ -[No] Diagnosis/symptom? @ -[Steve's cyst Acute, or Chronic, or Acute on Chronic? @ -Acute Uncomplicated (without systemic symptoms) or Complicated (systemic symptoms)? @ -[Uncomplicated Side effects of treatment? @ -[No] Exacerbation, Progression, or Severe Exacerbation? @ -[No] Poses a threat to life or bodily function? How? (Chest pain, [place], [place], pneumonia, PE, COPD, DKA, ARF, appy, cholecystitis, CVA, Diverticulitis, Homicidal, Suicidal, threat to staff... and all critical care pts) @ -[No] (Devon Reina) Disposition <Keke Carranza - Last Filed: 10/18/23 19:32> Is patient prescribed a controlled substance at d/c from ED?: No <Devon Reina - Last Filed: 11/05/23 05:20> Clinical Impression: Steve's cyst Disposition: HOME SELF-CARE Condition: Good Instructions (If sedation given, give patient instructions): Steve Cyst (ED), Knee Pain (ED) Prescriptions: Ibuprofen [Motrin] 600 mg PO Q8HR PRN #20 tab PRN Reason: Pain Referrals: None,Stated [Primary Care Provider] - 1-2 days Parviz Tobin DO [Doctor of Osteopathic Medicine] - 1-2 days
[2023-10-18 20:14] VITALS: RESP 18; TEMP 97.4
--- NOTE | 2023-10-18 22:05 | XR ---
PROCEDURE: XR knee complete bilateral - 3V DATE AND TIME: 10/18/2023 9:54 PM CLINICAL INDICATION: PHH; Pain and swelling TECHNIQUE: Department protocol COMPARISON: None FINDINGS: There is no fracture or malalignment. The soft tissues are unremarkable. IMPRESSION: NO ACUTE PROCESS.
[2023-10-18] MEDS ORDERED: IBUPROFEN 600 MG STARTER PACK 4 TAB BTL PO STA (22:36)
[2023-10-18] MEDS ORDERED: ACET/COD 300 MG/30 MG STARTER PACK 6 TAB BTL PO STA (22:36)
[2023-10-18] MEDS ORDERED: predniSONE 20 MG TAB PO STA (22:41)
[2023-10-18 23:04] VITALS: BP 128/79; PULSE 64
== END 2023-10-18 22:57 | disposition home or self-care (01) ==
LOC: EC 19:20
DX: M71.22 Synovial cyst of popliteal space [Baker], left knee (principal); M71.21 Synovial cyst of popliteal space [Baker], right knee; F17.200 Nicotine dependence, unspecified, uncomplicated
CPT/HCPCS: 99283 ×2; 73562; J7512